=== PATIENT | male | born 1955 | race African-American/Black ===

== ENCOUNTER 2017-01-31 22:22 | Emergency (ER) | payer OTHER, MEDICARE ==
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
== END 2017-02-01 08:12 | disposition expired ==
LOC: EDBD 22:22 → PHED 22:22
DX: T79.4XXA Traumatic shock, initial encounter (principal); I46.9 Cardiac arrest, cause unspecified
CPT/HCPCS: 36430; 92950; 99291; P9016; 86077; 86870